=== PATIENT | male | born 1955 | race Caucasian/White ===

== ENCOUNTER 2016-03-17 18:56 | Emergency (ER) | payer OTHER ==
[~2016-03-17] VITALS: Ht 170.2 cm; Wt 75.0 kg
[2016-03-17 19:10] VITALS: BP 161/110; PULSE 141; RESP 20; TEMP 98.1; O2SAT 99
--- NOTE | 2016-03-17 19:13 | PD ---
HPI Chief Complaint: Psychiatric Symptoms Time Seen by Provider: 19:13 Travel History International Travel<30 days: No Contact w/Intl Traveler<30days: No Traveled to known affect area: No History of Present Illness HPI 60-year-old male presents to emergency department under Ware act for psychiatric evaluation. Patient states that he wants to kill people. He states that his neighbors are "pissing him off." He alleges that they are stealing from him and making his life miserable. He "wants them ." Patient reports daily alcohol consumption and a large but unknown amount of alcohol consumed this evening. Denies suicidal ideations. Denies any acute medically needs at this time. PFSH Past Medical History Blood Disorders: No Anxiety: Yes Depression: Yes Cancer: Yes (skin cancer left shoulder removed) Cardiovascular Problems: No High Cholesterol: Yes Chest Pain: Yes Diminished Hearing: Yes (Poor hearing in bilateral ears, patient can read lips) Endocrine: No Genitourinary: No Hepatitis: Yes (HEPATITIS C) Immune Disorder: Yes (HEP C) Musculoskeletal: No Neurologic: No Psychiatric: Yes Reproductive: No Respiratory: No Past Surgical History Other Surgery: Yes (Vasectomy) Social History Alcohol Use: Yes Tobacco Use: No Substance Use: Yes (december 2013) Allergies-Medications (Allergen,Severity, Reaction): Coded Allergies: Ibuprofen (Verified Allergy, Severe, 08/05/14) HEPATITIS C Morphine (Verified Allergy, Severe, HEPATITIS C, 08/05/14) Reported Meds & Prescriptions Reported Meds & Active Scripts Active No Active Prescriptions or Reported Medications Review of Systems ROS Limitations: Intoxication Except as stated in HPI: all other systems reviewed are Neg Physical Exam Exam Limitations: Intoxication Narrative 60-year-old male presents to emergency department for evaluation. Patient is clinically intoxicated. Physical exam is limited due to patient's labile moods and combative nature. GENERAL: Unkempt male patient, sitting up in bed, yelling, crying, intermittently coming at staff with appears in no acute distress SKIN: Warm and dry. HEAD: Normocephalic. EYES: No scleral icterus. No injection or drainage. NECK: trachea midline. CARDIOVASCULAR: Tachycardic rate RESPIRATORY: No accessory muscle use. GASTROINTESTINAL: Abdomen nondistended. MUSCULOSKELETAL: No cyanosis, or edema. BACK: without obvious deformity. Data Data Last Documented VS Vital Signs Date Time Temp Pulse Resp B/P Pulse Ox O2 Delivery O2 Flow Rate FiO2 03/17/16 19:10 98.1 141 20 161/110 99 Room Air Orders Complete Blood Count With Diff (03/17/16 19:04) Basic Metabolic Panel (Bmp) (03/17/16 19:04) Urinalysis - C+S If Indicated (03/17/16 19:04) Drug Screen, Random Urine (03/17/16 19:04) Alcohol (Ethanol) (03/17/16 19:04) Psych Screen (03/17/16 19:04) Lorazepam Inj (Ativan Inj) (03/17/16 19:15) Restraints Violent (03/17/16 19:45) Labs Laboratory Tests Test 03/17/16 19:26 White Blood Count 4.9 TH/MM3 Red Blood Count 3.80 MIL/MM3 Hemoglobin 13.5 GM/DL Hematocrit 39.1 % Mean Corpuscular Volume 103.0 FL Mean Corpuscular Hemoglobin 35.6 PG Mean Corpuscular Hemoglobin 34.6 % Concent Red Cell Distribution Width 16.4 % Platelet Count 90 TH/MM3 Mean Platelet Volume 8.5 FL Neutrophils (%) (Auto) 37.7 % Lymphocytes (%) (Auto) 52.1 % Monocytes (%) (Auto) 8.6 % Eosinophils (%) (Auto) 0.8 % Basophils (%) (Auto) 0.8 % Neutrophils # (Auto) 1.8 TH/MM3 Lymphocytes # (Auto) 2.5 TH/MM3 Monocytes # (Auto) 0.4 TH/MM3 Eosinophils # (Auto) 0.0 TH/MM3 Basophils # (Auto) 0.0 TH/MM3 CBC Comment AUTO DIFF Differential Comment AUTO DIFF CONFIRMED Platelet Estimate LOW Platelet Morphology Comment NORMAL Sodium Level 138 MEQ/L Potassium Level 3.9 MEQ/L Chloride Level 101 MEQ/L Carbon Dioxide Level 23.1 MEQ/L Anion Gap 14 MEQ/L Blood Urea Nitrogen 11 MG/DL Creatinine 0.84 MG/DL Estimat Glomerular Filtration 93 ML/MIN Rate Random Glucose 112 MG/DL Calcium Level 8.3 MG/DL Ethyl Alcohol Level 364 MG/DL MDM Medical Decision Making Medical Screen Exam Complete: Yes Emergency Medical Condition: Yes Medical Record Reviewed: Yes Differential Diagnosis Intoxication versus mood disorder versus personality disorder versus adjustment reaction disorder Narrative Course 60-year-old male presents to emergency department under Ware act for psychiatric evaluation. Patient is clinically intoxicated. He is combative and uncooperative with labile moods. Physical exam is limited because of this. CBC and CMP are without acute concern. EtOH is 364. Patient will be monitored until he is clinically sober house time he will be medically cleared for psychiatric screening. [id number] exam completed at 1950. Patient demonstrates the need for violent restraints, demonstrating a risk of harming himself and others. Restraints are noted in place. Distal extremities remain neurovascularly intact. Mental health screening discussed with the patient. Psychiatric screen ordered. Diagnosis Primary Impression: Alcohol intoxication Qualified Code: F10.129 - Alcohol intoxication, with unspecified complication Additional Impression: Mood disorder Scripts No Active Prescriptions or Reported Meds Condition: Stable Robyn Castellanos Mar 17, 2016 19:13
[2016-03-17] MEDS ORDERED: LORazepam 2 MG/ML VIAL IM ONE (19:15)
[2016-03-17 19:43] LABS: AUTOMATED NEUTROPHIL # 1.8 TH/MM3 (1.8-7.7); BASOPHIL % 0.8 % (0.0-2.0); EOSINOPHIL % 0.8 % (0.0-4.0); HEMATOCRIT 39.1 % (39.0-51.0); LYMPH % 52.1 % (9.0-44.0); LYMPHOCYTE # 2.5 TH/MM3 (1.0-4.8); MEAN CORPUSCULAR HEMOGLOBIN 35.6 PG (27.0-34.0); MEAN CORPUSCULAR HGB CONC 34.6 % (32.0-36.0); MONO % 8.6 % (0.0-8.0); NEUT % 37.7 % (16.0-70.0); PLATELET COUNT 90 TH/MM3 (150-450); RED CELL DISTRIBUTION WIDTH 16.4 % (11.6-17.2); WHITE BLOOD COUNT 4.9 TH/MM3 (4.0-11.0)
[2016-03-17 19:51] LABS: HEMO FLAGS AUTO DIFF
[2016-03-17 20:03] LABS: BICARBONATE 23.1 MEQ/L (21.0-32.0); POTASSIUM 3.9 MEQ/L (3.5-5.1)
[2016-03-17 20:16] LABS: PLATELET ESTIMATE SMEAR LOW (NORMAL); PLATELET MORPHOLOGY NORMAL (NORMAL); SCAN/DIFF AUTO DIFF CONFIRMED
[2016-03-17 22:35] VITALS: PULSE 135
[2016-03-17] MEDS ORDERED: SODIUM CHLOR 0.9% 1000 ML INJ 1,000 ML IV ONE (22:45)
[2016-03-18 00:06] VITALS: BP 128/89; PULSE 125; RESP 18; TEMP 98.3; O2SAT 96
[2016-03-18 01:17] LABS: BLOOD, URINE NEG (NEG); COMMENT (UR) CULT NOT INDICATED; CULTURE IF INDICATED CULT NOT INDICATED; GLUCOSE,URINE 70 mg/dL (NEG); HYALINE CAST, URINE 7 /lpf (RARE); KETONE, URINE TRACE mg/dL (NEG); MUCUS URINE FEW /lpf (OCC); NITRITE,URINE NEG (NEG); PH, URINE 5.5 (5.0-8.5); RENAL EPITHELIAL CELLS <1 /hpf; SQUAMOUS EPITHELIAL CELL URINE <1 /hpf (0-5); URINE COLOR YELLOW (YELLW/STRAW)
[2016-03-18 01:18] LABS: AMPHETAMINE, URINE NEG (NEG); BARBITURATES, URINE NEG (NEG); COCAINE, URINE NEG (NEG)
[2016-03-18] MEDS ORDERED: LORazepam 2 MG/ML VIAL IV PUSH PRN ×4 (13:00)
[2016-03-18] MEDS ORDERED: LORazepam 1 MG TAB PO PRN (13:00)
[2016-03-18] MEDS ORDERED: FLUMAZENIL 1 MG/10 ML VIAL IV PUSH PRN (13:00)
[2016-03-18] MEDS ORDERED: ACETAMINOPHEN 325 MG TAB PO PRN (13:00)
[2016-03-18] MEDS ORDERED: ONDANSETRON HCL 4 MG/2 ML VIAL IV PUSH PRN (13:00)
[2016-03-18] MEDS ORDERED: LORazepam 2 MG TAB PO PRN (13:00)
[2016-03-18 13:26] VITALS: BP 157/100; PULSE 110; RESP 20; TEMP 98; O2SAT 96
[2016-03-18 18:47] VITALS: BP 141/76; PULSE 94; RESP 18; O2SAT 98
[2016-03-18 22:00] VITALS: BP 149/86; PULSE 97; RESP 18; O2SAT 98
[2016-03-19 02:00] VITALS: BP 156/95; PULSE 107; RESP 18; O2SAT 98
[2016-03-19 06:42] VITALS: BP 149/97; PULSE 101; RESP 17; O2SAT 98
[2016-03-19 10:39] VITALS: BP 140/82; PULSE 96; RESP 18; O2SAT 97
--- NOTE | 2016-03-19 10:48 | PD ---
History of Present Illness Chief Complaint: Psychiatric Symptoms Time Seen by Provider: 10:35 Travel History International Travel<30 Days: No Contact w/Intl Traveler<30days: No Known affected area: No Legal Status Legal Status: Ware Act Ware Act Signed By: Lucie Oro History of Present Illness: History of Present Illness 60-year-old male with history of alcohol dependence who presents to emergency department under Ware act initiated by [facility] for psychiatric evaluation. As per the report the police responded to a call on an intoxicated person. The patient reported to police that " he was wanting to kill himself to ". He was also banging his head against the wall". According to Ed documentation included here ; " Patient states that he wants to kill people. He states that his neighbors are "pissing him off." He alleges that they are stealing from him and making his life miserable. He "wants them ." He presents with BAL of 364. Patient is seen in J pod. He is clinically sober. Speech is clear. Of note he is hearing impaired but reads lips. His gait is steady and no tremors are noted. There is no indication of any acute psychiatric symptomatology. There is no psychosis and no marj.he states he has had a long history of drinking and that " when I drink I get agitated". He does acknowledge that he said he was going to hurt his neighbors but denies any intent or plan now that he is sober. ." I just get angry but next time I will watch my mouth". In terms of psychiatric history he denies previous tx. He has been to [facility] ED dept for ETOH related complaints in 2015. No inpatient admissions. Substance Use: he drinks every day most days. Attempted AA but due to his hearing impairment he was not able to participate in the meetings". PFSH Past Medical History Blood Disorders: No Anxiety: Yes Depression: Yes Cancer: Yes (skin cancer left shoulder removed) Cardiovascular Problems: No High Cholesterol: Yes Chest Pain: Yes Diminished Hearing: Yes (Poor hearing in bilateral ears, patient can read lips) Endocrine: No Gastrointestinal Disorders: Yes (gerd) Genitourinary: No Hepatitis: Yes (HEPATITIS C) Hypertension: Yes Immune Disorder: Yes (HEP C) Musculoskeletal: No Neurologic: No Psychiatric: Yes Reproductive: No Respiratory: No Influenza Vaccination: No Psychiatric History Psychiatric History Hx Psychiatric Treatment: [facility] in the past as outpatietn x 1 visit History of Inpatient Treatment: Yes Guns or firearms in home: No Social History Single male, lives by himself. Hx Alcohol Use: Yes Hx Tobacco Use: No Hx Substance Use: Yes Substance Use Type: Alcohol Other Substances Used: Pt denied Hx of Substance Use Treatment: Yes Family Psychiatric History Father, brother with hx of alcohol abuse. Allergies-Medications (Allergen,Severity, Reaction): Coded Allergies: Ibuprofen (Verified Allergy, Severe, 08/05/14) HEPATITIS C Morphine (Verified Allergy, Severe, HEPATITIS C, 08/05/14) Reported Meds & Prescriptions Reported Meds & Active Scripts Active No Active Prescriptions or Reported Medications Review of Systems Constitutional: COMPLAINS OF: Weight loss Endocrine: DENIES: Heat/cold intolerance, Polydipsia, Polyuria, Polyphagia Eyes: DENIES: Blurred vision, Diplopia, Eye inflammation, Eye pain, Vision loss , Photosensitivity, Double Vision Ears, nose, mouth, throat: COMPLAINS OF: Tinnitus, Hearing loss Respiratory: DENIES: Apneas, Cough, Snoring, Wheezing, Hemoptysis, Sputum production, Shortness of breath Cardiovascular: DENIES: Chest pain, Palpitations, Syncope, Dyspnea on Exertion , PND, Lower Extremity Edema, Orthopnea, Claudication Gastrointestinal: COMPLAINS OF: Abdominal pain, Diarrhea Genitourinary: DENIES: Sexual dysfunction, Urinary frequency, Urinary incontinence, Urgency, Hematuria, Dysuria, Nocturia, Penile Discharge, Testicular Pain, Testicular Swelling Musculoskeletal: DENIES: Joint pain, Muscle aches, Stiffness, Joint Swelling, Back pain, Neck pain Integumentary: DENIES: Abnormal pigmentation, Nail changes, Pruritus, Rash Hematologic/lymphatic: DENIES: Bruising, Lymphadenopathy Immunologic/allergic: DENIES: Eczema, Urticaria Neurologic: DENIES: Abnormal gait, Headache, Localized weakness, Paresthesias, Seizures, Speech Problems, Tremor, Poor Balance Psychiatric: DENIES: Anxiety, Confusion, Mood changes, Depression, Hallucinations, Agitation, Suicidal Ideation, Homicidal Ideation, Delusions Exam Alert: Yes [place]: Person (ox4) Mood: Calm Affect: Euthymic Speech: Clear, Logical Eye Contact: Normal Memory Intact: Comment (no impairment) Hallucinations: Other (negative) Delusions: No Suicidal: Ideation (denies any) Homicidal: Ideation (denies any) Insight/Judgement fair. fair. MDM Medical Decision Making Medical Record Reviewed: Yes Assessment/Plan 60 year old male under a BA for suicidal ideation in context of alcohol intoxication. He presented with BAL of 364. He was allowed to sober up clinically and once he was clinically sober he denies any suicidal or homicidal ideation, intent or plan. He does not meet criteria for Ba or for inpatient psychiatric treatment. He may benefit from AA. I have suggested that he try and attend a meeting and obtain a sponsor to help him with his sobriety. Follow up with [facility] as well. Lift BA. Orders Diet Regular Basic (03/18/16 Lunch) Alcohol Withdrawal Asmt-Ciwa ONCE (03/18/16 12:53) Ondansetron Inj (Zofran Inj) (03/18/16 13:00) Acetaminophen (Tylenol) (03/18/16 13:00) Flumazenil Inj (Romazicon Inj) (03/18/16 13:00) Lorazepam (Ativan) (03/18/16 13:00) Lorazepam Inj (Ativan Inj) (03/18/16 13:00) Lorazepam (Ativan) (03/18/16 13:00) Lorazepam Inj (Ativan Inj) (03/18/16 13:00) Lorazepam Inj (Ativan Inj) (03/18/16 13:00) Lorazepam Inj (Ativan Inj) (03/18/16 13:00) Diet Regular Basic (03/18/16 Dinner) Diet Regular Basic (03/19/16 Breakfast) Results Vital Signs Date Time Temp Pulse Resp B/P Pulse Ox O2 Delivery O2 Flow Rate FiO2 03/19/16 10:39 96 18 140/82 97 03/19/16 06:42 101 17 149/97 98 Room Air 03/19/16 02:00 107 18 156/95 98 Room Air 03/18/16 22:00 97 18 149/86 98 Room Air 03/18/16 18:47 94 18 141/76 98 Room Air 03/18/16 13:26 98.0 110 20 157/100 96 Room Air Diagnosis Primary Impression: Alcohol dependence with acute alcoholic intoxication Additional Impression: Alcohol intoxication Psychiatrically Cleared: Yes Referrals: [facility] (Out patient) call for appointment Departure Forms: Tests/Procedures Patient Instructions: General Instructions, Alcohol Dependence (ED) Prescriptions No Active Prescriptions or Reported Meds Disposition: 01 DISCHARGE HOME Condition: Stable Problem Qualifiers Additional Impression: Alcohol intoxication Qualified Code: F10.129 - Alcohol intoxication, with unspecified complication Ursula Mcconnell Mar 19, 2016 10:48
== END 2016-03-19 11:55 | disposition home or self-care (01) ==
LOC: NEDAMB 18:56 → NEPJ 03-19 11:55
DX: F10.129 Alcohol abuse with intoxication, unspecified (principal); Y90.8 Blood alcohol level of 240 mg/100 ml or more; F41.8 Other specified anxiety disorders; E78.00 Pure hypercholesterolemia, unspecified; H91.93 Unspecified hearing loss, bilateral; B19.20 Unspecified viral hepatitis C without hepatic coma; R00.0 Tachycardia, unspecified; F39 Unspecified mood [affective] disorder; R45.851 Suicidal ideations; R45.850 Homicidal ideations
CPT/HCPCS: 80048; 80307; 80320; 81001; 85025; 96360; 96372; 99284; J2060; J7030

== ENCOUNTER 2016-10-12 16:23 | Emergency (ER) | payer OTHER ==
[~2016-10-12] VITALS: Ht 185.4 cm; Wt 64.0 kg
--- NOTE | 2016-10-12 16:51 | PD ---
HPI Chief Complaint: psych Time Seen by Provider: 16:50 Travel History International Travel<30 days: No Contact w/Intl Traveler<30days: No History of Present Illness HPI 61-year-old male presents to the ED under Ware act for psychiatric evaluation. According to the Ware act paper work the patient states that he doesn't want to live anymore and was found naked on his lawn. On presentation patient endorses suicidality. He denies a specific plan. He states that he has cirrhosis and hepatitis C" I'll drink myself to ." He complains of pain in the bilateral hips, pain in the abdomen, chronic in nature. He denies other somatic complaints. He endorses drinking alcohol daily. He is unwilling to quantify the amount of alcohol he drank today. He denies illicit drug use. PFSH Past Medical History Blood Disorders: No Anxiety: Yes Depression: Yes Cancer: Yes (skin cancer left shoulder removed) Cardiovascular Problems: No High Cholesterol: Yes Chest Pain: Yes Diminished Hearing: Yes (Poor hearing in bilateral ears, patient can read lips) Endocrine: No Gastrointestinal Disorders: Yes (gerd) Genitourinary: No Hepatitis: Yes (HEPATITIS C) Hypertension: Yes Immune Disorder: Yes (HEP C) Musculoskeletal: No Neurologic: No Psychiatric: Yes Reproductive: No Respiratory: No Social History Alcohol Use: Yes Tobacco Use: No Substance Use: Yes Allergies-Medications (Allergen,Severity, Reaction): Coded Allergies: Ibuprofen (Verified Allergy, Severe, 08/05/14) HEPATITIS C Morphine (Verified Allergy, Severe, HEPATITIS C, 08/05/14) Reported Meds & Prescriptions Reported Meds & Active Scripts Active No Active Prescriptions or Reported Medications Review of Systems ROS Limitations: Intoxication Except as stated in HPI: all other systems reviewed are Neg Physical Exam Exam Limitations: Intoxication Narrative GENERAL: Well-nourished, well-developed, thin, tremulous white male in no acute distress. SKIN: Focused skin assessment warm/dry. HEAD: Normocephalic. Hard of hearing. EYES: No scleral icterus. No injection or drainage. NECK: Supple, trachea midline. No JVD or lymphadenopathy. CARDIOVASCULAR: Regular rate and rhythm without murmurs, gallops, or rubs. RESPIRATORY: Breath sounds clear and equal bilaterally. No accessory muscle use. GASTROINTESTINAL: Abdomen soft, non-tender, nondistended. Active bowel sounds. MUSCULOSKELETAL: No cyanosis, or edema. BACK: Nontender without obvious deformity. No CVA tenderness. Data Data Last Documented VS Vital Signs Date Time Temp Pulse Resp B/P Pulse Ox O2 Delivery O2 Flow Rate FiO2 10/12/16 17:01 98.6 137 22 127/79 99 10/12/16 16:54 Room Air Orders Complete Blood Count With Diff (10/12/16 16:51) Comprehensive Metabolic Panel (10/12/16 16:51) Drug Screen, Random Urine (10/12/16 16:51) Alcohol (Ethanol) (10/12/16 16:51) Alcohol Withdrawal Asmt-Ciwa ONCE (10/12/16 16:51) Lorazepam (Ativan) (10/12/16 17:00) Lorazepam Inj (Ativan Inj) (10/12/16 17:00) Lorazepam (Ativan) (10/12/16 17:00) Lorazepam Inj (Ativan Inj) (10/12/16 17:00) Lorazepam Inj (Ativan Inj) (10/12/16 17:00) Lorazepam Inj (Ativan Inj) (10/12/16 17:00) Diet Regular Basic (10/12/16 Dinner) Labs Laboratory Tests Test 10/12/16 10/12/16 17:10 17:45 White Blood Count 4.0 TH/MM3 Red Blood Count 3.42 MIL/MM3 Hemoglobin 12.6 GM/DL Hematocrit 36.8 % Mean Corpuscular Volume 107.5 FL Mean Corpuscular Hemoglobin 36.7 PG Mean Corpuscular Hemoglobin 34.1 % Concent Red Cell Distribution Width 16.9 % Platelet Count 103 TH/MM3 Mean Platelet Volume 8.7 FL Neutrophils (%) (Auto) 48.3 % Lymphocytes (%) (Auto) 41.7 % Monocytes (%) (Auto) 8.5 % Eosinophils (%) (Auto) 0.5 % Basophils (%) (Auto) 1.0 % Neutrophils # (Auto) 1.9 TH/MM3 Lymphocytes # (Auto) 1.7 TH/MM3 Monocytes # (Auto) 0.3 TH/MM3 Eosinophils # (Auto) 0.0 TH/MM3 Basophils # (Auto) 0.0 TH/MM3 CBC Comment DIFF FINAL Differential Comment Sodium Level 142 MEQ/L Potassium Level 3.7 MEQ/L Chloride Level 104 MEQ/L Carbon Dioxide Level 19.8 MEQ/L Anion Gap 18 MEQ/L Blood Urea Nitrogen 12 MG/DL Creatinine 1.18 MG/DL Estimat Glomerular Filtration 62 ML/MIN Rate Random Glucose 75 MG/DL Calcium Level 8.0 MG/DL Total Bilirubin 0.7 MG/DL Aspartate Amino Transf 206 U/L (AST/SGOT) Alanine Aminotransferase 104 U/L (ALT/SGPT) Alkaline Phosphatase 128 U/L Total Protein 9.0 GM/DL Albumin 3.0 GM/DL Ethyl Alcohol Level 324 MG/DL Urine Opiates Screen NEG Urine Barbiturates Screen NEG Urine Amphetamines Screen NEG Urine Benzodiazepines Screen NEG Urine Cocaine Screen NEG Urine Cannabinoids Screen NEG MDM Medical Decision Making Medical Screen Exam Complete: Yes Emergency Medical Condition: Yes Differential Diagnosis Acute alcohol intoxication versus chronic alcohol abuse versus electrolyte abnormality versus suicidal ideation versus other Narrative Course 61-year-old male presents to the ED under zSoup act for psychiatric evaluation. According to the zSoup act paper work the patient states that he doesn't want to live anymore and was found naked on his lawn. He states that he has cirrhosis and hepatitis C" I'll drink myself to ." He complains of pain in the bilateral hips, pain in the abdomen, chronic in nature. He denies other somatic complaints. He endorses drinking alcohol daily. He is unwilling to quantify the amount of alcohol he drank today. He denies illicit drug use. Vitals reviewed. On physical exam the patient is intoxicated but the exam is otherwise unremarkable. Lab work reveals hemoglobin of 12.6, 2-1 elevation of the AST and ALT, alcohol of 274. Patient was provided with a dinner, monitored in the ED for 3.5 hours. On recheck he is sitting up on the edge of the bed, anxious to leave. He denies suicidal ideation. Dr. Cain evaluated the patient and lifted the Ware Act. Transportation was arranged to take him home to [place]. He is stable and discharged home. Diagnosis Primary Impression: Alcohol dependence with acute alcoholic intoxication Qualified Code: F10.220 - Alcohol dependence with acute alcoholic intoxication without complication Referrals: [facility] (Out patient) Patient Instructions: Alcohol Dependence (ED), General Instructions Additional Instructions: Rest, hydrate. Seek outpatient treatment for your chronic alcohol abuse. Return to the ED for any urgent or emergent medical condition. Scripts No Active Prescriptions or Reported Meds Disposition: DISCHARGE HOME Condition: Stable Gilma Chaudhary Oct 12, 2016 16:51 Gilma Chaudhary Oct 12, 2016 16:51
[2016-10-12 16:54] VITALS: BP 127/79; PULSE 137; RESP 22; TEMP 98.6; O2SAT 97
[2016-10-12] MEDS ORDERED: LORazepam 1 MG TAB PO PRN (17:00)
[2016-10-12] MEDS ORDERED: LORazepam 2 MG TAB PO PRN (17:00)
[2016-10-12] MEDS ORDERED: LORazepam 2 MG/ML VIAL IV PUSH PRN ×4 (17:00)
[2016-10-12 17:01] VITALS: BP 127/79; PULSE 137; RESP 22; TEMP 98.6; O2SAT 99
--- NOTE | 2016-10-12 18:05 | PD ---
Data Data Last Documented VS Vital Signs Date Time Temp Pulse Resp B/P Pulse Ox O2 Delivery O2 Flow Rate FiO2 10/12/16 17:01 98.6 137 22 127/79 99 10/12/16 16:54 Room Air Orders Complete Blood Count With Diff (10/12/16 16:51) Comprehensive Metabolic Panel (10/12/16 16:51) Psych Screen (10/12/16 16:51) Drug Screen, Random Urine (10/12/16 16:51) Alcohol (Ethanol) (10/12/16 16:51) Alcohol Withdrawal Asmt-Ciwa ONCE (10/12/16 16:51) Lorazepam (Ativan) (10/12/16 17:00) Lorazepam Inj (Ativan Inj) (10/12/16 17:00) Lorazepam (Ativan) (10/12/16 17:00) Lorazepam Inj (Ativan Inj) (10/12/16 17:00) Lorazepam Inj (Ativan Inj) (10/12/16 17:00) Lorazepam Inj (Ativan Inj) (10/12/16 17:00) Diet Regular Basic (10/12/16 Dinner) MDM Supervised Visit with LALITO: Yes Narrative Course The history, exam, and medical decision-making in the associated mid-level provider note were completed with my assistance. I reviewed and agree with the findings presented. I attest that I had a [id number] encounter with the patient on the same day, and personally performed and documented my assessment and findings in the medical record. *My assessment and Findings: This 61-year-old man who presents to the emergency department brought in by police under a Ware act. He reports that he was walking around naked outside to see if somebody would call the police. He states he did yesterday know what he called the police. He states he drank alcohol prior to doing this. He states he's been feeling more depressed recently and thought that he would drink himself to . On further evaluation, his multiple complaints including being hungry. He states his family does live in town he feels very lonely. He feels like one of his neighbors killed his. During the course of the evaluation we fed him, talked to mom multiple occasions. He appears to be very forward thinking. He does not appear to be depressed. He does have some concerns concerning how he could get home. I do not think that he is an imminent threat to himself or others. He was offered to stay and to see psychiatry but declined. He does seem to want to stay overnight because he doesn't really have a ride. We'll observe for further sobriety and monitor him , will be allowed to be discharged when clinically sober. Diagnosis Primary Impression: Alcohol dependence with acute alcoholic intoxication Referrals: [facility] Patient Instructions: General Instructions Additional Instruction: Avoid excessive alcohol use. Follow-up with [facility] tomorrow. Return to the emergency department for any worsening symptoms of suicidality or depression. Med/Other Pt SpecificInfo: No Change to Meds Scripts No Active Prescriptions or Reported Meds Disposition: 01 DISCHARGE HOME Condition: Stable Remington Cain MD Oct 12, 2016 18:05
[2016-10-12 18:07] LABS: AMPHETAMINE, URINE NEG (NEG); BARBITURATES, URINE NEG (NEG); COCAINE, URINE NEG (NEG)
[2016-10-12 18:12] LABS: ALT (GPT) 104 U/L (12-78); ANION GAP 18 MEQ/L (5-15); AST (GOT) 206 U/L (15-37); BICARBONATE 19.8 MEQ/L (21.0-32.0); BLOOD UREA NITROGEN 12 MG/DL (7-18); CHLORIDE 104 MEQ/L (98-107); GLOMERULAR FILTRATION RATE 62 ML/MIN (>89); POTASSIUM 3.7 MEQ/L (3.5-5.1); SODIUM (NA) 142 MEQ/L (136-145)
[2016-10-12 18:15] LABS: ALKALINE PHOSPHATASE 128 U/L (45-117); TOTAL BILIRUBIN ADULT 0.7 MG/DL (0.2-1.0)
[2016-10-12 19:17] LABS: AUTOMATED NEUTROPHIL # 1.9 TH/MM3 (1.8-7.7); EOSINOPHIL % 0.5 % (0.0-4.0); HEMATOCRIT 36.8 % (39.0-51.0); HEMO FLAGS DIFF FINAL; LYMPH % 41.7 % (9.0-44.0); LYMPHOCYTE # 1.7 TH/MM3 (1.0-4.8); MEAN CELL VOLUME 107.5 FL (80.0-100.0); MEAN CORPUSCULAR HEMOGLOBIN 36.7 PG (27.0-34.0); MEAN CORPUSCULAR HGB CONC 34.1 % (32.0-36.0); MONO % 8.5 % (0.0-8.0); NEUT % 48.3 % (16.0-70.0); PLATELET COUNT 103 TH/MM3 (150-450); RED BLOOD COUNT 3.42 MIL/MM3 (4.50-5.90); RED CELL DISTRIBUTION WIDTH 16.9 % (11.6-17.2)
[2016-10-12 20:00] VITALS: BP 125/74; PULSE 108; RESP 22; TEMP 98.6; O2SAT 97
== END 2016-10-12 20:48 | disposition home or self-care (01) ==
LOC: NEPD 16:23
DX: Z02.89 Encounter for other administrative examinations (principal); F10.220 Alcohol dependence with intoxication, uncomplicated; B19.20 Unspecified viral hepatitis C without hepatic coma; K21.9 Gastro-esophageal reflux disease without esophagitis; E78.00 Pure hypercholesterolemia, unspecified
CPT/HCPCS: 80053; 80307; 85025; 99284